=== PATIENT | male | born 1945 | race Caucasian/White ===

== ENCOUNTER → 2024-11-22 13:13 | Outpatient (REF) | payer MEDICARE, SELFPAY | LOC: PAVMRI 13:13 | PROVIDERS: ATTENDING PHYSICIAN Specialist; FAMILY PHYSICIAN Family Medicine; REFERRING PHYSICIAN Radiology Diagnostic Radiology | DX: K86.2 Cyst of pancreas (principal); D35.02 Benign neoplasm of left adrenal gland | CPT/HCPCS: 74183; A9575 ==

== ENCOUNTER → 2025-07-20 13:06 | Outpatient (REF) | payer MEDICARE, SELFPAY | LOC: PAVMRI 13:06 | PROVIDERS: ATTENDING PHYSICIAN Family Medicine | DX: M54.50 Low back pain, unspecified (principal); M51.26 Other intervertebral disc displacement, lumbar region | CPT/HCPCS: 72148 ==

== ENCOUNTER → 2025-08-08 17:12 | Outpatient (REF) | payer MEDICARE, SELFPAY | LOC: RAD 17:12 | PROVIDERS: ATTENDING PHYSICIAN Physician Assistant Medical; FAMILY PHYSICIAN Family Medicine | DX: M54.16 Radiculopathy, lumbar region (principal) | CPT/HCPCS: 72110 ==